=== PATIENT | female | born 1990 | race African-American/Black ===

== ENCOUNTER 2016-12-29 11:02 | Emergency (ER) | payer MEDICAID | END 2016-12-29 12:57 | disposition home or self-care (01) | LOC: D.ER 11:02 | DX: K04.7 Periapical abscess without sinus (principal); K02.9 Dental caries, unspecified; K08.89 Other specified disorders of teeth and supporting structures; F41.9 Anxiety disorder, unspecified; F17.200 Nicotine dependence, unspecified, uncomplicated ==

== ENCOUNTER 2018-06-16 04:21 | Emergency (ER) | payer MEDICAID ==
[~2018-06-16] VITALS: Ht 165.1 cm; Wt 86.8 kg
[2018-06-16 04:28] VITALS: Ht 165.1 cm; Wt 86.8 kg
[2018-06-16 05:28] VITALS: BP 123/74
== END 2018-06-16 05:43 | disposition home or self-care (01) ==
LOC: D.ER 04:21
DX: R51 Headache (principal)

== ENCOUNTER 2019-01-17 13:55 | Inpatient (IN) | payer MEDICAID ==
[~2019-01-17] VITALS: Ht 162.6 cm; Wt 90.9 kg
--- NOTE | 2019-01-17 14:15 | NUR ---
CC URINE COLLECTED AND TO LAB.
[2019-01-17 14:32] LABS: APPEARANCE CLOUDY (CLEAR); COLOR YELLOW (YELLOW)
[2019-01-17 14:33] LABS: BILIRUBIN NEGATIVE (NEGATIVE); GLUCOSE NEGATIVE (NEGATIVE); KETONE NEGATIVE (NEGATIVE); NITRITE NEGATIVE (NEGATIVE); PROTEIN 2+ mg/dL (NEGATIVE); RED CELLS - URINE 25-50 /hpf (0-5); UROBILINOGEN NORMAL (NORMAL); WHITE CELLS - URINE >50 /hpf (0-5)
[2019-01-17 14:34] LABS: AMORPHOUS SEDIMENT <1+ /lpf (NONE SEEN); BACTERIA MANY /hpf (NONE SEEN); EPITHELIAL CELLS 0-5 /hpf (0-5)
[2019-01-17 14:41] LABS: BASOPHILS 0.1 % (0-2); EOSINOPHILS 0.1 % (0-7); HEMATOCRIT 31.2 % (36.0-48.0); HEMOGLOBIN 9.3 g/dL (12-16); IMMATURE GRANULOCYTES 0.5 % (0-5); LYMPHOCYTES 12.1 % (15-50); MCHC 29.8 g/dL (31.0-37.0); MCV 63.8 fL (80.0-100.0); MEAN PLATELET VOLUME 9.4 fL (7.4-10.4); MONOCYTES 9.1 % (2-11); NEUTROPHILS 78.1 % (40-80); RBC 4.89 10x6/uL (4.00-5.40); RDW 17.9 % (11.5-14.5); WBC 18.7 10x3/uL (4.8-10.8)
[2019-01-17 14:42] LABS: PLATELET COUNT 477 10x3/uL (130-400)
[2019-01-17 15:05] LABS: ALBUMIN 3.3 g/dL (3.4-5.0); ALKALINE PHOSPHATASE 149 U/L (46-116); ALT (SGPT) 138 U/L (10-68); BILIRUBIN - TOTAL 0.41 mg/dL (0.2-1.3); CALC OSMOLALITY 266 mosm/kg (275-300); CALCIUM 8.9 mg/dL (8.5-10.1); CHLORIDE - SERUM 96 mmol/L (98-107); CREATININE - SERUM 0.8 mg/dL (0.6-1.3); GLUCOSE 85 mg/dL (74-106); POTASSIUM - SERUM 3.4 mmol/L (3.5-5.1); PROTEIN - SERUM 10.1 g/dL (6.4-8.2); SODIUM 135 mmol/L (136-145); UREA NITROGEN 8 mg/dL (7-18); eGFR NON AFRICAN AMERICAN 90 mL/min (90-120)
--- NOTE | 2019-01-17 15:15 | NUR ---
ASSUMED CARE OF PATIENT, RESTING QUIETLY AT THIS TIME WAITING FOR ORDERS.
[2019-01-17 15:53] LABS: HCG URINE NEGATIVE (NEGATIVE)
[2019-01-17 15:54] LABS: C-REACTIVE PROTEIN 15.9 mg/dL (0.0-0.9)
--- NOTE | 2019-01-17 16:00 | NUR ---
MEDICATIONS GIVEN PER ORDER, NS INFUSING, CALL LIGHT WITHIN REACH. CT ORDERED WAITING TO GO.
[2019-01-17 19:13] VITALS: BP 91/54; Ht 162.6 cm; Wt 90.9 kg
[2019-01-17 19:15] VITALS: BP 131/82
[2019-01-17 20:21] VITALS: BP 91/54
[2019-01-18 03:30] VITALS: BP 106/59
[2019-01-18 06:11] LABS: HEPATITIS C ANTIBODY 0.2 (0.0-0.9)
[2019-01-18 07:07] LABS: BASOPHILS 0.2 % (0-2); EOSINOPHILS 0.4 % (0-7); IMMATURE GRANULOCYTES 0.3 % (0-5); LYMPHOCYTES 11.7 % (15-50); MCHC 28.8 g/dL (31.0-37.0); MEAN PLATELET VOLUME 9.9 fL (7.4-10.4); MONOCYTES 15.6 % (2-11); NEUTROPHILS 71.8 % (40-80); RBC 4.06 10x6/uL (4.00-5.40)
[2019-01-18 07:11] LABS: MCH 18.5 pg (26.0-34.0); PLATELET COUNT 375 10x3/uL (130-400); WBC 10.5 10x3/uL (4.8-10.8)
[2019-01-18 07:13] LABS: HEMOGLOBIN 7.5 g/dL (12-16)
[2019-01-18 07:23] LABS: % SATURATION 2 % (15-55); IRON 9 ug/dl (35-150); TOTAL IRON BIND CAPACITY 333 ug/dl (260-445); UNSAT IRON BIND CAPACITY 324 ug/dl (150-375)
[2019-01-18 07:39] LABS: ALBUMIN 2.5 g/dL (3.4-5.0); ALKALINE PHOSPHATASE 128 U/L (46-116); ALT (SGPT) 140 U/L (10-68); BILIRUBIN - DIRECT 0.04 mg/dL (0.00-0.30); BILIRUBIN - TOTAL 0.14 mg/dL (0.2-1.3); CALC OSMOLALITY 277 mosm/kg (275-300); CALCIUM 8.4 mg/dL (8.5-10.1); CARBON DIOXIDE 25.9 mmol/L (21.0-32.0); CHLORIDE - SERUM 105 mmol/L (98-107); CREATININE - SERUM 0.7 mg/dL (0.6-1.3); GLUCOSE 90 mg/dL (74-106); PROTEIN - SERUM 7.8 g/dL (6.4-8.2); SODIUM 140 mmol/L (136-145); UREA NITROGEN 9 mg/dL (7-18); eGFR NON AFRICAN AMERICAN > 90 mL/min (90-120)
[2019-01-18 07:40] LABS: POTASSIUM - SERUM 4.1 mmol/L (3.5-5.1)
[2019-01-18 08:00] VITALS: BP 119/78
--- NOTE | 2019-01-18 08:10 | NUR ---
ASSESSMENT COMPLETE. IV TO L AC PATENT. COMPLAINING OF GENERALIZED PAIN-YURIDIA IN NECK AND BACK OF HEAD. DENIES ANY NEEDS AT THIS TIME.
--- NOTE | 2019-01-18 08:35 | NUR ---
SPECIMEN HAT PLACED IN TOILET. PATIENT INSTRUCTED TO NOTIFY STAFF WHEN BOWEL MOVEMENT OCCURS TO COLLECT SPECIMEN. VOICED UNDERSTANDING.
--- NOTE | 2019-01-18 09:15 | HP ---
PATIENT: JAVIER STUBBS MEDICAL RECORD: [id number] ACCOUNT: [id number] LOCATION:[facility] D1209 : 90 ADMISSION DATE: 01/17/19 PCP: No PCP HISTORY AND PHYSICAL EXAMINATION DATE OF ADMISSION: 01/17/2019 CHIEF COMPLAINT: Fever, body aches, urinary frequency, urgency, and dysuria for 3-4 days. HISTORY OF PRESENT ILLNESS: This is a 29-year-old -[place] female who has no primary care physician. She used to see Dr. Harrison who has moved away. She has been feeling bad for several days. She has had urinary frequency, urgency, and dysuria as well as lower abdominal pains and lower back pain for the last several days. She had fever today and that prompted her to come in to the Emergency Room, where her fever was 101.9. Rest of her vital signs were stable. Her white count was elevated. She was anemic with a hemoglobin of 9.3 and a low MCV. Liver enzymes were mildly elevated. Urinalysis showed infection. CT of the abdomen and pelvis showed bilateral pyelonephritis, worse on the left than the right. She is admitted for further treatment. PAST MEDICAL AND SURGICAL HISTORY: Significant for depression, anxiety, and bipolar illness. PAST SURGICAL HISTORY: Cholecystectomy. ALLERGIES: PROZAC. CURRENT MEDICATIONS: None. FAMILY HISTORY: Mother is . Father is alive with hypertension. No known diabetes or heart disease. SOCIAL HISTORY: She lives with her 3 children. She does not work. HABITS: She smokes. She denies alcohol or drug use. REVIEW OF SYSTEMS: GENERAL: No major weight changes. HEENT: No particular sinus or allergy problems. RESPIRATORY: No history of asthma or emphysema. CARDIAC: No chest pain, palpitations, or history of heart disease. GASTROINTESTINAL: She has had her gallbladder removed. GENITOURINARY: No significant problems there. MUSCULOSKELETAL: She has had some pains in her back. HEMATOLOGY: She states she has a known history of anemia. She has had heavy menses in the past. NEUROLOGIC: No migraines or seizures. PSYCHIATRIC: History of depression, anxiety and bipolar disease. PHYSICAL EXAMINATION: VITAL SIGNS: In the ER, temperature 101.9, pulse 107, respirations 16, blood pressure 115/59. Currently, she is in no acute distress, awake and alert. SKIN: Warm and dry. HEENT: Grossly within normal limits. HISTORY AND PHYSICAL [id number] JAVIER STUBBS NECK: Supple. HEART: Regular rate and rhythm without murmur. LUNGS: Clear. ABDOMEN: Soft. Mild generalized tenderness. No guarding, no rebound, no mass. PELVIC: Not done. EXTREMITIES: No edema. LABORATORY DATA: Lactic acid level 2.0. CBC with a white count of 18,700, hemoglobin 9.3, hematocrit 31.2, MCV 63.8, platelets number 477,000. Basic metabolic panel is all normal. AST elevated at 106, ALT elevated at 138. C-reactive protein elevated at 15.9. Urinalysis is yellow, cloudy, 2+ protein, 2+ blood, 2+ leukocyte esterase, 25-50 red blood cells, greater than 50 white blood cells, many bacteria, 0-5 epithelial cells. Beta hCG is negative. CT of the abdomen and pelvis showed bilateral pyelonephritis, worse on the left than the right. ASSESSMENT: 1. Bilateral pyelonephritis. 2. Microcytic anemia. PLAN: We will check blood cultures and urine cultures. She is started on IV Rocephin. She is given IV fluids, Zofran p.r.n. We will Hemoccult stools for her anemia. Other tests or procedures as warranted. TRANSINT:[id number] Voice Confirmation ID: [id number] DOCUMENT ID: [id number] ELLY ORITZ MD at 0915 CC: [id number] DICTATION DATE: 01/17/192025 TELLER SUPERVISOR: 01/18/19 0126 ADM IN [facility] [address] [place] [address]
--- NOTE | 2019-01-18 09:58 | NUR ---
DR ORTIZ BY TO SEE PATIENT. NEW ORDERS RECIEVED. TRAMADOL GIVEN FOR COMPLAINT OF GENERALIZED PAIN. SCD'S APPLIED TO BILAT LEGS. CALL LIGHT WITHIN REACH.
--- NOTE | 2019-01-18 10:45 | NUR ---
STATES THAT PAIN IS BETTER AFTER TAKING TRAMADOL.
[2019-01-18 12:43] VITALS: BP 118/65
[2019-01-18 15:07] LABS: BASOPHILS 0.1 % (0-2); EOSINOPHILS 0.5 % (0-7); IMMATURE GRANULOCYTES 0.3 % (0-5); LYMPHOCYTES 16.1 % (15-50); MCHC 28.8 g/dL (31.0-37.0); MCV 64.5 fL (80.0-100.0); MEAN PLATELET VOLUME 9.7 fL (7.4-10.4); MONOCYTES 14.9 % (2-11); NEUTROPHILS 68.1 % (40-80); PLATELET COUNT 380 10x3/uL (130-400); RBC 4.03 10x6/uL (4.00-5.40); WBC 9.6 10x3/uL (4.8-10.8)
[2019-01-18 15:10] LABS: HEMOGLOBIN 7.5 g/dL (12-16); MCH 18.6 pg (26.0-34.0)
--- NOTE | 2019-01-18 15:11 | NUR ---
NOTIFIED BY LAB THAT HEMOGLOBIN IS STILL 7.5. DR ORTIZ AWARE THAT HEMOGLOBIN WAS 7.5 THIS AM. WRITTEN ORDER TO CALL IF HEMOGLOBIN RECHECK WAS LESS THAN 7.2.
--- NOTE | 2019-01-18 16:56 | NUR ---
DENIES ANY NEEDS AT THIS TIME.
--- NOTE | 2019-01-18 17:24 | NUR ---
TRAMADOL GIVEN FOR C/O OF GENERALIZED PAIN. DENIES ANY FURTHER NEEDS AT THIS TIME.
--- NOTE | 2019-01-18 19:00 | NUR ---
BEDSIDE REPORT RECEIVED AND CARE OF PT ASSUMED. PT LYING IN LOW ASKEW'S POSITION WITH EYES CLOSED. IV IN LEFT AC PATENT WITH NS INFUSING AT 100 ML / HR. WILL MONITOR FOR NEEDS.
[2019-01-18 19:37] VITALS: BP 112/58
--- NOTE | 2019-01-18 20:41 | NUR ---
HS MEDICATIONS GIVEN. WILL CONTINUE TO MONITOR FOR NEEDS.
--- NOTE | 2019-01-18 23:29 | NUR ---
GAVE TRAMADOL 100 MG PO PER REQUEST FOR PAIN. WILL MONITOR FOR EFFECTIVENESS.
[2019-01-19 00:56] VITALS: BP 123/72
[2019-01-19 05:52] VITALS: BP 108/73
[2019-01-19 06:04] LABS: ALBUMIN 2.3 g/dL (3.4-5.0); ALKALINE PHOSPHATASE 134 U/L (46-116); ALT (SGPT) 170 U/L (10-68); BILIRUBIN - TOTAL 0.08 mg/dL (0.2-1.3); CALC OSMOLALITY 275 mosm/kg (275-300); CALCIUM 8.4 mg/dL (8.5-10.1); CARBON DIOXIDE 26.9 mmol/L (21.0-32.0); CHLORIDE - SERUM 104 mmol/L (98-107); CREATININE - SERUM 0.6 mg/dL (0.6-1.3); GLUCOSE 91 mg/dL (74-106); PROTEIN - SERUM 7.2 g/dL (6.4-8.2); SODIUM 140 mmol/L (136-145); eGFR NON AFRICAN AMERICAN > 90 mL/min (90-120)
[2019-01-19 06:07] LABS: UREA NITROGEN 5 mg/dL (7-18)
[2019-01-19 06:41] LABS: BASOPHILS 0.2 % (0-2); EOSINOPHILS 1.3 % (0-7); HEMATOCRIT 23.9 % (36.0-48.0); IMMATURE GRANULOCYTES 0.4 % (0-5); LYMPHOCYTES 29.2 % (15-50); MCHC 28.5 g/dL (31.0-37.0); MCV 63.7 fL (80.0-100.0); MEAN PLATELET VOLUME 9.9 fL (7.4-10.4); MONOCYTES 18.8 % (2-11); NEUTROPHILS 50.1 % (40-80); PLATELET COUNT 391 10x3/uL (130-400); RBC 3.75 10x6/uL (4.00-5.40); WBC 8.3 10x3/uL (4.8-10.8)
[2019-01-19 06:43] LABS: HEMOGLOBIN 6.8 g/dL (12-16); MCH 18.1 pg (26.0-34.0)
--- NOTE | 2019-01-19 07:13 | NUR ---
RECEIVED ORDER TO TRANSFUSE 2 UNITS PRBC'S FOR CRITICALLY LOW H/H. PT INFORMED AND CONSENTED FOR TRANSFUSION.
[2019-01-19 08:21] VITALS: BP 97/58
--- NOTE | 2019-01-19 08:50 | NUR ---
PATIENT IN BED WITH EYES CLOSED RESTING QUIETLY. CALL IGHT WITHIN REACH.
--- NOTE | 2019-01-19 14:00 | NUR ---
PATIENT TOOK MOM. EXPLAINED THAT THE DOCTOR HAS ORDERED A SAMPLE. HAT PLACED IN TOILET. VERBALIZED UNDERSTANDING. CALL LIGHT WITHIN REACH.
--- NOTE | 2019-01-19 14:15 | NUR ---
FIRST UNIT OF BLOOD STARTED. PATIENT VS STABLE. IV INTACT. NO PROBLEMS AT THIS TIME. WILL CONTINUE TO MONITOR.
[2019-01-19 14:23] VITALS: BP 93/47
--- NOTE | 2019-01-19 14:30 | NUR ---
PATIENT IN BED WITH IV INTACT. BLOOD INFUSING, VS STABLE. NO COMPLAINTS OR SIGNS OF DISTRESS. CALL LIGHT WITHIN REACH.
[2019-01-19 15:55] VITALS: BP 98/57
--- NOTE | 2019-01-19 16:30 | NUR ---
PATIENT BLOOD FINISHED AT THIS TIME. VS STABLE WITH NO PROBLEMS. WILL START SECOND UNIT.
--- NOTE | 2019-01-19 18:45 | NUR ---
PATIENT IN BED WITH BLOOD INFUSING. VS STABLE. PATIENT STATES SHE DOESNT FEEL WELL AND WANTS TO TAKE A SHOWER. EXPLAINED SHE WOULD HAVE TO WAIT UNTIL BLOOD IS FINISHED. VERBALIZED UNDERSTANDING. CALL LIGHT WITHIN REACH.
--- NOTE | 2019-01-19 19:00 | NUR ---
REPORT RECEIVED AND CARE OF PT ASSUMED. PT LYING IN SUPINE POSITION VISITING WITH FAMILY MEMBERS. IV IN LEFT AC PATENT WITH PRBC'S INFUSING AT THIS TIME. WILL MONITOR FOR NEEDS.
[2019-01-19 20:00] VITALS: BP 127/60
--- NOTE | 2019-01-19 20:30 | NUR ---
PRBC'S INFUSION COMPLETE AND LINES FLUSHED.
--- NOTE | 2019-01-19 20:45 | NUR ---
PT SHOWERED AND ALL LINENS AND GOWN CHANGED.
--- NOTE | 2019-01-19 21:24 | NUR ---
HS MEDICATIONS GIVEN TO INCLUDE TRAMADOL 100 MG PO PER REQUEST FOR PAIN. WILL MONITOR FOR EFFECTIVENESS.
[2019-01-20] VITALS: BP 102/57
[2019-01-20 03:00] VITALS: BP 101/63
[2019-01-20 05:35] LABS: ALBUMIN 2.4 g/dL (3.4-5.0); ALKALINE PHOSPHATASE 179 U/L (46-116); CALCIUM 8.5 mg/dL (8.5-10.1); CARBON DIOXIDE 29.1 mmol/L (21.0-32.0); CHLORIDE - SERUM 104 mmol/L (98-107); CREATININE - SERUM 0.7 mg/dL (0.6-1.3); GLUCOSE 90 mg/dL (74-106); POTASSIUM - SERUM 4.4 mmol/L (3.5-5.1); PROTEIN - SERUM 7.6 g/dL (6.4-8.2); SODIUM 137 mmol/L (136-145); eGFR NON AFRICAN AMERICAN > 90 mL/min (90-120)
[2019-01-20 05:36] LABS: ALT (SGPT) 232 U/L (10-68); CALC OSMOLALITY 271 mosm/kg (275-300); UREA NITROGEN 7 mg/dL (7-18)
[2019-01-20 05:40] LABS: LYMPHOCYTES 31.7 % (15-50); MCH 20.4 pg (26.0-34.0); MCHC 29.9 g/dL (31.0-37.0); NEUTROPHILS 52.6 % (40-80); PLATELET COUNT 379 10x3/uL (130-400); RBC 4.22 10x6/uL (4.00-5.40); RDW 19.1 % (11.5-14.5)
[2019-01-20 05:43] LABS: HEMATOCRIT 28.8 % (36.0-48.0); HEMOGLOBIN 8.6 g/dL (12-16); MCV 68.2 fL (80.0-100.0)
--- NOTE | 2019-01-20 09:00 | NUR ---
EXPLAINED TO PATIENT NOT TO EAT OR DRINK ANYTHING ELSE UNTIL AFTER THEY DO HER US. VERBALIZED UNDERSTANDING. NO QUESTIONS AT THIS TIME. IV INTACT. CALL LIGHT WITHIN REACH.
[2019-01-20 09:19] VITALS: BP 96/57
[2019-01-20 13:10] VITALS: BP 94/67
[2019-01-20 16:16] VITALS: BP 96/69
--- NOTE | 2019-01-20 17:15 | NUR ---
[employer] TECH STATED PATIENT HAD EATEN LUNCH SO SHE WOULD BE BACK IN THE AM TO DO THE US. EXPLAINED NPO PAST MN TO PATIENT. VERBALIZED UNDERSTANDING. STATES SHE DIDNT THINK THEY WERE GOING TO DO THE TEST BECAUSE IT WAS TAKING SO LONG, SO SHE WENT AHEAD AND ATE. CALL LIGHT WITHIN REACH.
--- NOTE | 2019-01-20 17:30 | NUR ---
PATIENT UP AMBULATING IN WALL WITH FRIEND. CALL LIGHT WITHIN REACH.
--- NOTE | 2019-01-20 17:30 | NUR ---
PATIENT IV LEAKING AT THIS TIME. TURNED OFF AND EXPLAINED THAT SHE WOULD HAVE TO GET ANOTHER ONE. VERBALIZED UNDERSTANDING.
--- NOTE | 2019-01-20 17:50 | NUR ---
TRIED X 2 FOR IV TO BE RESTARTED BY STUDENT AND INSTRUCTOR. UNABLE TO OBTAIN AT THIS TIME. REFUSING TO BE STUCK AGAIN. STATED SHE DIDNT WANT AN IV. EXPLAINED I WOULD LET THE PHYSICIAN KNOW.
--- NOTE | 2019-01-20 19:20 | NUR ---
NOTIFIED DR. RUFF OF PATIENT REFUSING IV. NEW ORDERS RECIEVED AND CARRIED OUT.
--- NOTE | 2019-01-20 19:45 | NUR ---
PT RESTING IN BED. ALERT AND ORIENTED. NO SIGNS OF DISTRESS. BREATHING EVEN AND UNLABORED. PT STATES NO PROBLEMS AT THIS TIME. NO IV SITE PT REFUSING. BOWEL SOUNDS ACITVE. NO LOWER LEG SWELLING PRESENT. WILL CONTINUE PLAN OF CARE. CALL LIGHT IN REACH. BED LOWERED AND LOCKED. BED RAILS UP X2.
[2019-01-20 20:00] VITALS: BP 112/60
[2019-01-21 04:00] VITALS: BP 110/64
--- NOTE | 2019-01-21 05:42 | NUR ---
I have reviewed this patient and I concur with the Shift Assessment completed by the Licensed Practical Nurse today this shift.
[2019-01-21 06:24] LABS: BASOPHILS 0.5 % (0-2); EOSINOPHILS 2.1 % (0-7); HEMATOCRIT 29.8 % (36.0-48.0); IMMATURE GRANULOCYTES 0.4 % (0-5); LYMPHOCYTES 36.3 % (15-50); MCHC 30.2 g/dL (31.0-37.0); MEAN PLATELET VOLUME 9.9 fL (7.4-10.4); MONOCYTES 9.1 % (2-11); NEUTROPHILS 51.6 % (40-80); RDW 19.9 % (11.5-14.5)
[2019-01-21 06:44] LABS: MCV 66.2 fL (80.0-100.0); PLATELET COUNT 481 10x3/uL (130-400); WBC 10.3 10x3/uL (4.8-10.8)
[2019-01-21 07:49] LABS: ALBUMIN 2.5 g/dL (3.4-5.0); ALKALINE PHOSPHATASE 186 U/L (46-116); ALT (SGPT) 226 U/L (10-68); BILIRUBIN - TOTAL 0.05 mg/dL (0.2-1.3); CALCIUM 8.6 mg/dL (8.5-10.1); CARBON DIOXIDE 27.8 mmol/L (21.0-32.0); CHLORIDE - SERUM 105 mmol/L (98-107); CREATININE - SERUM 0.7 mg/dL (0.6-1.3); GLUCOSE 83 mg/dL (74-106); POTASSIUM - SERUM 4.3 mmol/L (3.5-5.1); PROTEIN - SERUM 7.8 g/dL (6.4-8.2); SODIUM 142 mmol/L (136-145); eGFR NON AFRICAN AMERICAN > 90 mL/min (90-120)
[2019-01-21 07:56] LABS: CALC OSMOLALITY 280 mosm/kg (275-300); UREA NITROGEN 9 mg/dL (7-18)
--- NOTE | 2019-01-21 08:30 | NUR ---
ASSESSMENT PER FLOW SHEET. PT IS WITHOUT DISTRESS. DENIES NEEDS AT PRESENT. MONITOR
[2019-01-21 08:44] VITALS: BP 112/74
[2019-01-21 12:30] VITALS: BP 109/61
--- NOTE | 2019-01-21 15:12 | NUR ---
STOOL FOR OCCULT BLOOD RESULS CALLED TO DR. RUIZ NURSE PADILLA
[2019-01-21 15:38] VITALS: BP 99/51
[2019-01-21] MEDS ORDERED: NIFEREX-150 CAP1 CA3 PO (17:33)
[2019-01-21] MEDS ORDERED: AMOXICILLIN875 MG PO (17:34)
--- NOTE | 2019-01-21 19:30 | NUR ---
PT WENT OUTSIDE TO SMOKE STATED SHE WOULD BE BACK FOR HER DISCHARGE PAPERS
--- NOTE | 2019-01-21 20:13 | NUR ---
PT STILL NOT ON FLOOR, PAPERWORK AT DESK, PT HAD NO IV WHEN SHE LEFT THE FLOOR, WILL DC FROM COMPUTER
== END 2019-01-21 20:14 | disposition home or self-care (01) | DRG 690 ==
LOC: D.ER 13:55 → D.MS 17:49 → D.EDHOLD 17:49 → D.M3 17:57 → D.MS 01-18 18:17
PROVIDERS: Family Medicine; ADMIT Family Medicine; ATTEND Family Medicine
DX: N10 Acute pyelonephritis (principal); D64.9 Anemia, unspecified; F32.89 Other specified depressive episodes

== ENCOUNTER 2019-03-15 21:27 | Emergency (ER) | payer MEDICAID ==
[~2019-03-15 21:27] MED LIST: AMOXICILLIN875 MG PO; NIFEREX-150 CAP1 CA3 PO
[2019-03-15 21:31] VITALS: BP 145/86; Ht 162.6 cm
--- NOTE | 2019-03-15 22:08 | NUR ---
DR ZAMAN NOTIFIED AND REVIEWED PT;s BEHAVIOR AND ASSESSMENT RESULTS. PT IS A LOW RISK PER DR ZAMAN. DR ZAMAN STATED TO GIVE RESOURCES TO PT AT TIME OF DISCHAGE, NO FURTHER ORDERS AT THIS TIME, RESOURCES REVIEWED WITH PT AND SHE VERBALIZED UNDERSTANDING.
[2019-03-15 23:17] LABS: BASOPHILS 0.1 % (0-2); EOSINOPHILS 0.2 % (0-7); HEMATOCRIT 33.2 % (36.0-48.0); HEMOGLOBIN 10.6 g/dL (12-16); IMMATURE GRANULOCYTES 0.4 % (0-5); LYMPHOCYTES 19.6 % (15-50); MCHC 31.9 g/dL (31.0-37.0); MCV 68.9 fL (80.0-100.0); MEAN PLATELET VOLUME 9.5 fL (7.4-10.4); NEUTROPHILS 73.7 % (40-80); PLATELET COUNT 510 10x3/uL (130-400); RBC 4.82 10x6/uL (4.00-5.40); RDW 23.7 % (11.5-14.5)
[2019-03-15 23:29] LABS: ALBUMIN 3.8 g/dL (3.4-5.0); ALKALINE PHOSPHATASE 118 U/L (46-116); ALT (SGPT) 82 U/L (10-68); BILIRUBIN - TOTAL 0.21 mg/dL (0.2-1.3); CALC OSMOLALITY 268 mosm/kg (275-300); CALCIUM 9.1 mg/dL (8.5-10.1); CARBON DIOXIDE 26.6 mmol/L (21.0-32.0); CHLORIDE - SERUM 99 mmol/L (98-107); CREATININE - SERUM 0.6 mg/dL (0.6-1.3); GLUCOSE 76 mg/dL (74-106); POTASSIUM - SERUM 3.6 mmol/L (3.5-5.1); PROTEIN - SERUM 9.3 g/dL (6.4-8.2); SODIUM 136 mmol/L (136-145); UREA NITROGEN 8 mg/dL (7-18); eGFR NON AFRICAN AMERICAN > 90 mL/min (90-120)
== END 2019-03-16 00:12 | disposition left against medical advice (07) ==
LOC: D.ER 21:27
PROVIDERS: Emergency Medicine
DX: K12.2 Cellulitis and abscess of mouth (principal)